=== PATIENT | female | born 1970 | race Two or more races ===

== ENCOUNTER 2017-04-20 09:33 | Outpatient (CLI) | payer BC ==
[~2017-04-20] VITALS: Ht 170.2 cm; Wt 54.4 kg
[2017-04-20 09:55] VITALS: BP 134/86
[2017-04-20] MEDS ORDERED: OMEPRAZOLE40 M1 ORAL (09:56)
--- NOTE | 2017-04-21 16:22 | GI Initial Consult Note ---
History of Present Illness General Date patient seen: Apr 20, 2017 Time patient seen: 11:00 Referring physician: PRABHA SOLANO Reason for Consultation: ABDOMINAL PAIN Present Illness HPI 47 year old female patient referred by Dr. Solano for evaluation of abdominal pain and elevated LFTs. The patient presents today with c/o generalized abdominal pain, bloating, nausea with occasional vomiting and GERD. Abdominal U/S reviewed shows fatty liver and cholelithiasis. Labs reviewed shows vitamin D deficiency. Denies any unintentional weight loss or changes in dietary habits. No signs of abuse or neglect. Patient is not fall risk. Home Meds Reported Medications Omeprazole (OMEPRAZOLE) 40 Mg Capsule., 40 MG ORAL DAILY, CAP 04/20/17 Med list reviewed/reconciled: Yes Allergies: Coded Allergies: No Known Allergies (Unverified , 04/20/17) Patient History History Provided By: Patient, Medical Record PMH Narrative GERD HLD Past Surgical History: x 2 Family History Narrative Father >> Lung CA Social History Narrative ETOH social use approximately 2 a month. Tobacco use x 8 years, but has quit for 18 years occasional caffeine use Review of Systems All Other Systems: negative except mentioned in HPI Physical Exam Vital Signs Date Time Temp Pulse Resp B/P (MAP) Pulse Ox O2 Delivery O2 Flow Rate FiO2 04/20/17 09:55 98.7 73 134/86 99 98.7 Sp02 EP Interpretation: reviewed, normal General Appearance: well appearing, no apparent distress, alert Head: normocephalic EENT: PERRL/EOMI, normal ENT inspection Neck: supple Respiratory: normal breath sounds, no respiratory distress Cardiovascular: normal rate Gastrointestinal: normal inspection, non tender, soft, normal bowel sounds, non -distended Rectal: deferred Genitourinary: no CVA tenderness Musculoskeletal: normal inspection, back normal Neurologic: normal inspection, alert, oriented x3, responsive Psychiatric: normal inspection, judgement/insight normal, memory normal Skin: normal inspection, normal color, no rash, warm/dry, palpation normal, well hydrated Lymphatic: normal inspection, no adenopathy GI: Plan Problems: (1) Cholelithiasis (2) GERD (gastroesophageal reflux disease) (3) Nausea & vomiting (4) LFT elevation Plan abdominal U/S reviewed labs reviewed patient requires cholecystectomy will refer patient to general surgery Seen with Dr. Vosoghi. Thank you for this patient referral. Priti Eastman N.P. Apr 21, 2017 16:22
== END 2017-04-20 10:05 | disposition home or self-care (01) ==
LOC: PAN 09:33
DX: K80.20 Calculus of gallbladder without cholecystitis without obstruction (principal); K21.9 Gastro-esophageal reflux disease without esophagitis; R11.2 Nausea with vomiting, unspecified; R79.89 Other specified abnormal findings of blood chemistry; E78.5 Hyperlipidemia, unspecified; K76.0 Fatty (change of) liver, not elsewhere classified

== ENCOUNTER 2017-06-16 14:02 | Inpatient (IN) | payer BC ==
[~2017-06-16] VITALS: Ht 160 cm; Wt 77.1 kg
[~2017-06-16 14:02] MED LIST: OMEPRAZOLE40 M1 ORAL
[2017-06-16] MEDS ORDERED: Sodium Chloride 500ML 500 ML IV ONE (14:14)
[2017-06-16] MEDS ORDERED: Ketorolac 30mg Inj IV ONE (14:15)
[2017-06-16] MEDS ORDERED: Dicyclomine HCl 10mg/5ml oral soln ORAL ONE (14:15)
--- NOTE | 2017-06-16 14:18 | Emergency Room Report ---
History of Present Illness General Chief Complaint: Abdominal Pain Source: Patient Present Illness HPI Patient is a 47-year-old female who presented after increased the sharp epigastric pain. Patient reports having severe pain which did not radiate. She puts having associated nausea and vomiting. She denies any hematemesis. She denies black or bloody stools. Patient prior history of gallbladder disease and was scheduled for cholecystectomy in July. The patient had onset of pain after eating taquitos Allergies: Coded Allergies: No Known Allergies (Unverified , 04/20/17) Patient History Past Medical History: see triage record Reviewed Nursing Documentation: PMH: Agreed; PSxH: Agreed Nursing Documentation-PMH Hx Cardiac Problems: Yes Hx Cancer: No Hx Gastrointestinal Problems: Yes - GALLSTONE Hx Neurological Problems: No Review of Systems All Other Systems: negative except mentioned in HPI Physical Exam Vital Signs Date Time Temp Pulse Resp B/P (MAP) Pulse Ox O2 Delivery O2 Flow Rate FiO2 06/16/17 14:05 97.8 83 20 137/85 99 Room Air 97.9 Sp02 EP Interpretation: reviewed, normal General Appearance: normal inspection, well appearing, no apparent distress, alert, GCS 15 Head: atraumatic ENT: normal ENT inspection, hearing grossly normal, normal voice Neck: normal inspection, full range of motion, supple, no bony tend Respiratory: normal inspection, lungs clear, normal breath sounds, no respiratory distress, no retraction, no wheezing Cardiovascular #1: regular rate, rhythm, no edema Gastrointestinal: normal inspection, normal bowel sounds, non tender, soft, no guarding, no hernia, tenderness - right upper quadrant Genitourinary: no CVA tenderness Musculoskeletal: normal inspection, back normal, normal range of motion Neurologic: normal inspection, alert, oriented x3, responsive, 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 Differential diagnoses included ischemic bowel, appendicitis, perforated viscus, abdominal aortic aneurysm, inferior myocardial infarction, viral gastroenteritis Because of complexity of patient's case laboratory testing and imaging studies were ordered.The abdominal ultrasound read by radiology showed dilated common bile duct . Common bile duct was greater than 7 mmconsistent with possible choledocholithiasis. The patient was given a GI cocktail without any improvement. Patient also given IV Toradol.The patient was discussed with Dr. Shady Metcalf for inpatient management due to capitated physician. Dr. Gonzales was contacted for GI consult Labs Test 06/16/17 14:20 06/16/17 14:55 White Blood Count 7.6 K/UL (4.8-10.8) Red Blood Count 4.90 M/UL (4.20-5.40) Hemoglobin 14.7 G/DL (12.0-16.0) Hematocrit 42.4 % (37.0-47.0) Mean Corpuscular Volume 87 FL (80-99) Mean Corpuscular Hemoglobin 30.1 PG (27.0-31.0) Mean Corpuscular Hemoglobin Concent 34.8 G/DL (32.0-36.0) Red Cell Distribution Width 11.4 % (11.6-14.8) Platelet Count 225 K/UL (150-450) Mean Platelet Volume 6.5 FL (6.5-10.1) Neutrophils (%) (Auto) 59.9 % (45.0-75.0) Lymphocytes (%) (Auto) 28.5 % (20.0-45.0) Monocytes (%) (Auto) 7.3 % (1.0-10.0) Eosinophils (%) (Auto) 3.4 % (0.0-3.0) Basophils (%) (Auto) 0.9 % (0.0-2.0) Prothrombin Time 10.0 SEC (9.30-11.50) Prothromb Time International Ratio 1.0 (0.9-1.1) Activated Partial Thromboplast Time 29 SEC (23-33) Sodium Level 138 MMOL/L (136-145) Potassium Level 3.8 MMOL/L (3.5-5.1) Chloride Level 101 MMOL/L (98-107) Carbon Dioxide Level 28 MMOL/L (21-32) Anion Gap 9 mmol/L (5-15) Blood Urea Nitrogen 14 mg/dL (7-18) Creatinine 0.8 MG/DL (0.55-1.30) Estimat Glomerular Filtration Rate > 60 mL/min (>60) Glucose Level 111 MG/DL (74-106) Calcium Level 9.2 MG/DL (8.5-10.1) Total Bilirubin 0.8 MG/DL (0.2-1.0) Aspartate Amino Transf (AST/SGOT) 38 U/L (15-37) Alanine Aminotransferase (ALT/SGPT) 33 U/L (12-78) Alkaline Phosphatase 68 U/L (46-116) Troponin I 0.000 ng/mL (0.000-0.056) Total Protein 8.2 G/DL (6.4-8.2) Albumin 4.0 G/DL (3.4-5.0) Globulin 4.2 g/dL Albumin/Globulin Ratio 1.0 (1.0-2.7) Lipase 140 U/L (73-393) Urine Color Yellow Urine Appearance Clear Urine pH 7 (4.5-8.0) Urine Specific [place] 1.015 (1.005-1.035) Urine Protein 1+ (NEGATIVE) Urine Glucose (UA) Negative (NEGATIVE) Urine Ketones 1+ (NEGATIVE) Urine Occult Blood 2+ (NEGATIVE) Urine Nitrite Negative (NEGATIVE) Urine Bilirubin Negative (NEGATIVE) Urine Urobilinogen 1 MG/DL (0.0-1.0) Urine Leukocyte Esterase 2+ (NEGATIVE) Urine RBC 2-4 /HPF (0 - 2) Urine WBC 0-2 /HPF (0 - 2) Urine Squamous Epithelial Cells Few /LPF (NONE/OCC) Urine Bacteria Few /HPF (NONE) Last Vital Signs Date Time Temp Pulse Resp B/P (MAP) Pulse Ox O2 Delivery O2 Flow Rate FiO2 06/16/17 14:05 97.8 83 20 137/85 99 Room Air 97.9 Status: unchanged Disposition: ADMITTED INPATIENT Condition: Serious Scripts Dicyclomine Hcl* (DICYCLOMINE HCL*) 10 Mg Capsule 10 MG PO QID, #30 CAP Prov: Dylon Saldana 06/16/17 Dylon Saldana June 16, 2017 14:18
[2017-06-16 14:37] VITALS: BP 137/85
[2017-06-16 14:37] LABS: BASOPHILS % (AUTO) 0.9 % (0.0-2.0); EOSINOPHILS % (AUTO) 3.4 % (0.0-3.0); HEMATOCRIT 42.4 % (37.0-47.0); HEMOGLOBIN 14.7 G/DL (12.0-16.0); LYMPHOCYTES % (AUTO) 28.5 % (20.0-45.0); MEAN CORPUSCULAR VOLUME 87 FL (80-99); MONOCYTES % (AUTO) 7.3 % (1.0-10.0); NEUTROPHILS % (AUTO) 59.9 % (45.0-75.0); PLATELET COUNT 225 K/UL (150-450); RED CELL DISTRIBUTION WIDTH 11.4 % (11.6-14.8); WHITE BLOOD COUNT 7.6 K/UL (4.8-10.8)
[2017-06-16 14:49] LABS: ANION GAP 9 mmol/L (5-15); BLOOD UREA NITROGEN 14 mg/dL (7-18); CALCIUM 9.2 MG/DL (8.5-10.1); CARBON DIOXIDE 28 MMOL/L (21-32); CHLORIDE 101 MMOL/L (98-107); CREATININE 0.8 MG/DL (0.55-1.30); POTASSIUM 3.8 MMOL/L (3.5-5.1); SODIUM 138 MMOL/L (136-145)
[2017-06-16 14:53] LABS: ALANINE AMINOTRANSFERASE 33 U/L (12-78); ALKALINE PHOSPHATASE 68 U/L (46-116); ASPARTATE AMINO TRANSFERASE 38 U/L (15-37); BILIRUBIN,TOTAL 0.8 MG/DL (0.2-1.0)
[2017-06-16] MEDS ORDERED: DICYCLOMINE HCL10 MG PO (15:15)
[2017-06-16 15:32] LABS: APPEARANCE,URINE CLEAR; BILIRUBIN, URINE NEGATIVE (NEGATIVE); COLOR,URINE YELLOW; GLUCOSE, URINE (UA) NEGATIVE (NEGATIVE); KETONES,URINE 1+ (NEGATIVE); LEUKOCYTE ESTERASE ,URINE 2+ (NEGATIVE); NITRITE,URINE NEGATIVE (NEGATIVE); PH,URINE 7 (4.5-8.0); PROTEIN,URINE 1+ (NEGATIVE); UROBILINOGEN,URINE 1 MG/DL (0.0-1.0)
[2017-06-16 15:40] VITALS: BP 134/75
[2017-06-16] MEDS ORDERED: NKM (15:52)
[2017-06-16 17:53] VITALS: BP 135/74
[2017-06-16 18:44] VITALS: BP 141/77
[2017-06-16 19:56] VITALS: BP 140/76
[2017-06-16] MEDS: D5NS 1,000 ML IV SCH (20:38)
[2017-06-16] MEDS ORDERED: cefTRIAXone 1 GM in D5W 55 ML IVPB SCH (21:00)
[2017-06-17] VITALS: BP 126/73
[2017-06-17 04:00] VITALS: BP 133/75
[2017-06-17 08:00] VITALS: BP 125/77
--- NOTE | 2017-06-17 09:23 | Diagnostic Imaging Report ---
Indication:Abdominal pain Technique: Grayscale and duplex Doppler imaging of the abdomen performed. Comparison: None Findings: The liver, demonstrated part of the pancreas, aorta and IVC, spleen appear unremarkable. Gallstones are present. Positive sonographic Sandoval's is reported. Cholecystitis not excluded. There is no wall thickening or pericholecystic fluid. CBD is prominent measuring between 7 and 8 mm. Doppler evaluation of the main portal vein shows patency. There is no ascites. No hydronephrosis seen. However, there are some echogenic foci within the kidneys which may be 6 small nonobstructive stones. There is a probable left renal cyst measuring 2 cm. Impression: Gallstones. Positive sonographic Sandoval's per technologist. Cholecystitis not excluded. Correlate clinically. Slightly prominent CBD. This may be normal. Correlate clinically Suggestion of nonobstructive bilateral renal stones.
[2017-06-17 12:00] VITALS: BP 124/68
[2017-06-17] MEDS ORDERED: Isovue-300 100ml vial INJ PRN (12:30)
--- NOTE | 2017-06-17 12:35 | GI Initial Consult Note ---
History of Present Illness General Date patient seen: June 17, 2017 Time patient seen: 16:46 Reason for Hospitalization: Abdominal Pain Referring physician: NATHALIA LONGORIA Reason for Consultation: ABDOMINAL PAIN Present Illness HPI Patient is a 47-year-old female who presented after increased the sharp epigastric pain. Patient reports having severe pain which did not radiate. She puts having associated nausea and vomiting. She denies any hematemesis. She denies black or bloody stools. Patient prior history of gallbladder disease and was scheduled for cholecystectomy in July. The patient had onset of pain after eating taquitos GI consult for abdominal pain. Pt seen, awake A&Ox4 NAD c/o of abdominal pain. State has been ongoing for the past 10 months, has been more recurrent within the past month. Abdominal U/S reviewed shows cholelithiasis. Labs reviewed show slight AST elevation. No history of colonoscopy / endoscopy. Home Meds Active Scripts Dicyclomine Hcl* (DICYCLOMINE HCL*) 10 Mg Capsule, 10 MG PO QID, #30 CAP Prov:Dylon Saldana 06/16/17 Reported Medications Ondansetron Odt* (ZOFRAN ODT*) 8 Mg Tab.rapdis, 8 MG ORAL Q8HR PRN for Nausea & Vomiting, #30 TAB 06/17/17 Omeprazole (OMEPRAZOLE) 20 Mg Capsule.dr, 20 MG ORAL DAILY, #30 CAP 06/17/17 No Known Medications* (NKM - No Known Medications*) ., 0 ., 0 Refills 06/16/17 Discontinued Reported Medications Omeprazole (OMEPRAZOLE) 40 Mg Capsule.dr, 40 MG ORAL DAILY, CAP 04/20/17 Med list reviewed/reconciled: Yes Allergies: Coded Allergies: No Known Allergies (Unverified , 04/20/17) Patient History History Provided By: Patient, Medical Record PMH Narrative Past Medical History: see triage record Reviewed Nursing Documentation: PMH: Agreed; PSxH: Agreed Nursing Documentation-PMH Hx Cardiac Problems: Yes Hx Cancer: No Hx Gastrointestinal Problems: Yes - GALLSTONE Hx Neurological Problems: No Social History: Denies: smoking, alcohol use, drug use, other Review of Systems All Other Systems: negative except mentioned in HPI Physical Exam Vital Signs Date Time Temp Pulse Resp B/P (MAP) Pulse Ox O2 Delivery O2 Flow Rate FiO2 06/16/17 14:05 97.8 83 20 137/85 99 Room Air 97.9 Sp02 EP Interpretation: reviewed, normal Labs Laboratory Tests Test 06/16/17 14:20 06/16/17 14:55 White Blood Count 7.6 K/UL (4.8-10.8) Red Blood Count 4.90 M/UL (4.20-5.40) Hemoglobin 14.7 G/DL (12.0-16.0) Hematocrit 42.4 % (37.0-47.0) Mean Corpuscular Volume 87 FL (80-99) Mean Corpuscular Hemoglobin 30.1 PG (27.0-31.0) Mean Corpuscular Hemoglobin Concent 34.8 G/DL (32.0-36.0) Red Cell Distribution Width 11.4 % (11.6-14.8) L Platelet Count 225 K/UL (150-450) Mean Platelet Volume 6.5 FL (6.5-10.1) Neutrophils (%) (Auto) 59.9 % (45.0-75.0) Lymphocytes (%) (Auto) 28.5 % (20.0-45.0) Monocytes (%) (Auto) 7.3 % (1.0-10.0) Eosinophils (%) (Auto) 3.4 % (0.0-3.0) H Basophils (%) (Auto) 0.9 % (0.0-2.0) Prothrombin Time 10.0 SEC (9.30-11.50) Prothromb Time International Ratio 1.0 (0.9-1.1) Activated Partial Thromboplast Time 29 SEC (23-33) Sodium Level 138 MMOL/L (136-145) Potassium Level 3.8 MMOL/L (3.5-5.1) Chloride Level 101 MMOL/L (98-107) Carbon Dioxide Level 28 MMOL/L (21-32) Anion Gap 9 mmol/L (5-15) Blood Urea Nitrogen 14 mg/dL (7-18) Creatinine 0.8 MG/DL (0.55-1.30) Estimat Glomerular Filtration Rate > 60 mL/min (>60) Glucose Level 111 MG/DL (74-106) H Calcium Level 9.2 MG/DL (8.5-10.1) Total Bilirubin 0.8 MG/DL (0.2-1.0) Aspartate Amino Transf (AST/SGOT) 38 U/L (15-37) H Alanine Aminotransferase (ALT/SGPT) 33 U/L (12-78) Alkaline Phosphatase 68 U/L (46-116) Troponin I 0.000 ng/mL (0.000-0.056) Total Protein 8.2 G/DL (6.4-8.2) Albumin 4.0 G/DL (3.4-5.0) Globulin 4.2 g/dL Albumin/Globulin Ratio 1.0 (1.0-2.7) Lipase 140 U/L (73-393) Urine Color Yellow Urine Appearance Clear Urine pH 7 (4.5-8.0) Urine Specific [place] 1.015 (1.005-1.035) Urine Protein 1+ (NEGATIVE) H Urine Glucose (UA) Negative (NEGATIVE) Urine Ketones 1+ (NEGATIVE) H Urine Occult Blood 2+ (NEGATIVE) H Urine Nitrite Negative (NEGATIVE) Urine Bilirubin Negative (NEGATIVE) Urine Urobilinogen 1 MG/DL (0.0-1.0) H Urine Leukocyte Esterase 2+ (NEGATIVE) H Urine RBC 2-4 /HPF (0 - 2) H Urine WBC 0-2 /HPF (0 - 2) Urine Squamous Epithelial Cells Few /LPF (NONE/OCC) Urine Bacteria Few /HPF (NONE) General Appearance: well appearing, no apparent distress, alert Head: normocephalic EENT: PERRL/EOMI, normal ENT inspection Neck: supple Respiratory: normal breath sounds, no respiratory distress Cardiovascular: normal rate Gastrointestinal: normal inspection, non tender, soft, normal bowel sounds, non -distended Rectal: deferred Genitourinary: no CVA tenderness Musculoskeletal: normal inspection, back normal Neurologic: normal inspection, alert, oriented x3, responsive Psychiatric: normal inspection, judgement/insight normal, memory normal Skin: normal inspection, normal color, no rash, warm/dry, palpation normal, well hydrated Lymphatic: normal inspection, no adenopathy Current Medications Current Medications Medications (Trade) Dose Ordered Sig/Taz Route PRN Reason Start Time Stop Time Status Last Admin Dose Admin Ceftriaxone Sodium 1 gm/ Dextrose 55 ml @ 110 mls/hr Q24H IVPB 06/16/17 21:00 06/23/17 23:59 06/16/17 20:37 Dextrose/Sodium Chloride 1,000 ml @ 75 mls/hr [id number] IV 06/16/17 20:00 07/16/17 19:59 06/16/17 20:38 Hydromorphone HCl (Dilaudid) 0.5 mg Q4H PRN IVP Mild Pain (Pain Scale 1-3) 06/17/17 07:00 06/24/17 06:59 Hydromorphone HCl (Dilaudid) 1 mg Q4H PRN IVP Severe Pain (Pain Scale 7-10) 06/16/17 20:00 06/23/17 19:59 06/17/17 00:40 Iopamidol (Isovue-300 100ml) 100 ml NOW PRN INJ Radiology Procedure 06/17/17 12:30 06/19/17 23:59 Ondansetron HCl (Zofran) 4 mg Q4H PRN IVP Nausea & Vomiting 06/17/17 02:15 07/17/17 02:14 06/17/17 09:02 GI: Plan Problems: (1) Cholelithiasis (2) LFT elevation (3) Nausea & vomiting (4) GERD (gastroesophageal reflux disease) Plan abdominal US reviewed >> cholelithiasis, fu with surgical surgical intervention reviewed >> nonemergent, ok for outpatient symptomatic treatment pain mgmt ppi fu labs Discussed with Dr. Gonzales. Thank you for this patient referral, we will follow. Priti Eastman N.P. June 17, 2017 12:35
[2017-06-17] MEDS ORDERED: Norco 5mg/325mg tab ORAL PRN (12:39)
[2017-06-17] MEDS: D5NS 1,000 ML IV SCH (12:47)
--- NOTE | 2017-06-17 13:52 | Diagnostic Imaging Report ---
Indication: Abdominal pain Technique: Continuous helical transaxial imaging of the abdomen and pelvis was obtained from the lung bases to the pubic symphysis during intravenous contrast administration. Coronal 2-D reformats were also obtained. Study obtained in a Siemens sensation [address] Automatic Exposure Control was utilized. Total Dose length Product (DLP): 926.[address] Dose Index Volume (CTDIvol): 16.58 mGy Comparison: None Findings: The lung bases are essentially clear. Liver is unremarkable in appearance. Gallbladder is mildly distended. Spleen is unremarkable. Pancreas is unremarkable. There is no free fluid. There is a left renal cyst centrally measuring approximately 2 cm. The appendix is normal. No evidence of bowel obstruction. There is an involuting cyst with enhancing slightly irregular borders are within the left ovary. Uterus is noted and unremarkable. IMPRESSION: Small involuting left ovarian cyst noted. Normal appendix. Left renal cyst 2 cm in size. The CT scanner at [facility] is accredited by the [employer] and the scans are performed using dose optimization techniques as appropriate to a performed exam including Automatic Exposure control.
--- NOTE | 2017-06-17 15:08 | Consultation ---
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 pain cramping epigastric pain that radiates to right and left upper quadrants. nausea, non bloody emesis. had ultrasound which demonstrated cholelithiasis and +mcconnell's at the time. since pain has resolved. some nausea but controlled with zofran. emesis resolved. states that she has had similar events in the past. has been diagnosed with symptomatic cholelithiasis and is scheduled to have elective cholecystectomy in july 26, 2017. Initially had episodes similar infrequently but has been having them more frequently as of a few months ago. +flatus. +BM' s. Allergies: Coded Allergies: No Known Allergies (Unverified , 04/20/17) Medication History Scheduled Dicyclomine Hcl* (Dicyclomine Hcl*), 10 MG PO QID No Known Medications* (NKM - No Known Medications*), 0 ., (Reported) Discontinued Medications Omeprazole (Omeprazole), 40 MG ORAL DAILY, (Reported) Discontinued Reason: Pt stopped taking med Patient History History Provided By: Patient, Medical Record, PMD Healthcare decision maker Resuscitation status Full Code Advanced Directive on File No Past Medical/Surgical History Past Medical/Surgical History: (1) GERD (gastroesophageal reflux disease) (2) Nausea & vomiting (3) LFT elevation (4) Choledocholithiasis (5) Cholelithiasis Review of Systems Constitutional: Denies: no symptoms, see HPI, chills, sweats, fever, malaise, weakness, other Eye: Denies: no symptoms, see HPI, eye pain, blurred vision, tearing, double vision, nose pain, nose congestion, acuity changes, discharge, other ENT: Denies: no symptoms, see HPI, ear pain, ear discharge, nose pain, nose congestion, throat pain, throat swelling, mouth pain, hearing loss, nasal discharge, other Respiratory: Denies: no symptoms, see HPI, cough, orthopnea, shortness of breath, stridor, wheezing, CORRIGAN, sputum, other Cardiovascular: Denies: no symptoms, see HPI, chest pain, edema, palpitations, syncope, PND, other Gastrointestinal: Denies: no symptoms, see HPI, abdominal pain, constipation, diarrhea, nausea, vomiting, melena, hematemesis, other Genitourinary: Denies: no symptoms, see HPI, discharge, dysuria, frequency, hematuria, pain, retention, incontinence, urgency, vag bleed/dc, other Musculoskeletal: Denies: no symptoms, see HPI, back pain, gout, joint pain, joint swelling, muscle pain, muscle stiffness, other Skin: Denies: no symptoms, see HPI, rash, change in color, change in hair/nails , dryness, lesions, other Psychiatric: Denies: no symptoms, see HPI, prior hx, anxiety, depressed feelings, emotional problems, SI, HI, hallucinations, other Neurological: Denies: no symptoms, see HPI, headache, numbness, paresthesia, seizure, tingling, tremors, focal weakness, syncope, dizziness, other Endocrine: Denies: no symptoms, see HPI, excessive sweating, flushing, intolerance to temperature, increased thirst, increased urine, unexplained weight loss, other Hematologic/Lymphatic: Denies: no symptoms, see HPI, anemia, blood clots, easy bleeding, easy bruising, swollen glands, diathesis, other All Other Systems: negative except mentioned in HPI Physical Exam General Appearance: no apparent distress, alert Lines, tubes and drains: peripheral HEENT: normocephalic, mucous membranes moist, PERRL Neck: normal alignment Respiratory/Chest: lungs clear, normal breath sounds, no respiratory distress, no accessory muscle use Cardiovascular/Chest: normal peripheral pulses, normal rate, regular rhythm Abdomen: normal bowel sounds, soft, no organomegaly, no mass, tender - can identify tenderness in umbilical region. no murphys on my exam Extremities: normal range of motion, non-tender, normal inspection Skin Exam: normal pigmentation, warm/dry Neurologic: alert, oriented x 3 Last 24 Hour Vital Signs Date Time Temp Pulse Resp B/P (MAP) Pulse Ox O2 Delivery O2 Flow Rate FiO2 06/17/17 12:00 97.8 67 16 124/68 99 97.8 06/17/17 08:00 97.6 67 18 125/77 98 97.6 06/17/17 04:00 98.7 73 18 133/75 95 Room Air 98.7 06/17/17 01:10 98.3 06/17/17 00:40 98.3 06/17/17 00:00 98.3 74 18 126/73 98 98.3 06/16/17 19:56 98.0 70 18 140/76 97 98.0 06/16/17 18:44 98.7 72 20 141/77 96 Room Air 98.7 06/16/17 18:15 97.8 78 18 135/74 99 Room Air 97.8 06/16/17 17:53 97.8 78 18 135/74 99 Room Air 97.8 06/16/17 15:40 79 18 134/75 99 Room Air 06/16/17 15:40 97.8 Intake and Output 06/16/17 06/17/17 19:00 07:00 Intake Total 60 ml 675 ml Balance 60 ml 675 ml Intake Oral 60 ml IV Total 675 ml # Voids 2 Height (Feet): 5 Height (Inches): 3.00 Weight (Pounds): 170 Medications Current Medications Medications (Trade) Dose Ordered Sig/Taz Route PRN Reason Start Time Stop Time Status Last Admin Dose Admin Acetaminophen/ Hydrocodone Bitart ([place] 5/325) 1 tab Q6H PRN ORAL For Mod Pain 06/17/17 12:39 06/24/17 12:38 Ceftriaxone Sodium 1 gm/ Dextrose 55 ml @ 110 mls/hr Q24H IVPB 06/16/17 21:00 06/23/17 23:59 06/16/17 20:37 Dextrose/Sodium Chloride 1,000 ml @ 75 mls/hr [id number] IV 06/16/17 20:00 07/16/17 19:59 06/17/17 12:47 Hydromorphone HCl (Dilaudid) 0.5 mg Q4H PRN IVP Mild Pain (Pain Scale 1-3) 06/17/17 07:00 06/24/17 06:59 Hydromorphone HCl (Dilaudid) 1 mg Q4H PRN IVP Severe Pain (Pain Scale 7-10) 06/16/17 20:00 06/23/17 19:59 06/17/17 00:40 Iopamidol (Isovue-300 100ml) 100 ml NOW PRN INJ Radiology Procedure 06/17/17 12:30 06/19/17 23:59 Ondansetron HCl (Zofran) 4 mg Q4H PRN IVP Nausea & Vomiting 06/17/17 02:15 07/17/17 02:14 06/17/17 09:02 Assessment/Plan Problem List: (1) Cholelithiasis Assessment & Plan: doing well. stable. improving. pain resolved. no n/v/f/ c. did have umbilical pain on exam that was more than anticipated. CT scan performed and identified reducible umbilical hernia. no other abnormalities noted. likely episode of biliary colic. resolved. stable -d/c home -follow up with planned elective cholecystectomy as scheduled by her surgeon -follow up with me as needed -okay to return to work -rx as written -return if worsening condition thank you for this consultation. ICD Codes: K80.20 - Calculus of gallbladder without cholecystitis without obstruction SNOMED: [id number] Qualifiers: Status: stable BenjyFelipe amador June 17, 2017 15:08
[2017-06-17] MEDS ORDERED: OMEPRAZOLE20 M2 ORAL (15:33)
[2017-06-17] MEDS ORDERED: ZOFRAN ODT8 MG ORAL (15:34)
[2017-06-17] MEDS ORDERED: Tubing IV Secondary IV ONE (15:56)
[2017-06-17] MEDS ORDERED: D5NS 1000ml IV ONE (15:56)
--- NOTE | 2017-06-17 19:45 | History and Physical Report ---
DATE OF ADMISSION: 06/16/2017 HISTORY OF PRESENT ILLNESS: This is a very pleasant 47-year-old female with a previous history of choledocholithiasis. She has a scheduled cholecystectomy at [facility] in the near future. The patient denies any previous history except for history of previous . She came to the hospital with abdominal pain. She also had nausea. She was admitted overnight due to findings of positive sonographic Sandoval sign on ultrasonography as well as pericholecystic fluid. The patient denies any headaches, hematemesis, melena, hematochezia, or weight loss. PAST MEDICAL HISTORY: Choledocholithiasis, cholelithiasis, and previous . ALLERGIES: None reported. HOME MEDICATIONS: None. PHYSICAL EXAMINATION: VITAL SIGNS: Blood pressure 130/70, heart rate . She is afebrile. GENERAL: Reveals a young female. HEENT: Unremarkable. CHEST: Clear breath sounds bilaterally. ABDOMEN: Soft. There is no edema. There is mild right discomfort. NEUROLOGIC: Nonfocal. LABORATORY AND DIAGNOSTIC DATA: Lab testing shows white count 7.6, hemoglobin 14, platelet count is normal. Chemistry is unremarkable. Glucose is 111. AST 38 and ALT 33. Troponins negative. Coags are negative. Urinalysis negative. Imaging studies, discussed above. There is evidence of CBD being 7.8 mm and there are renal stones as well as a left renal cyst. IMPRESSION: 1. Cholelithiasis. 2. Possible cholecystitis. DISCUSSION: We will consult Surgery. The patient may be a candidate for cholecystectomy. If not, we will consider discharge to home and outpatient followup. Shady Metcalf M.D. DR: REBEKA JOB#: [id number] CC:
--- NOTE | 2017-06-18 14:36 | Discharge Summary ---
Discharge Summary Discharge Summary Discharge Summary DATE OF ADMISSION: 06/16/2017 DATE OF DISCHARGE: 06/17/2017 CONSULTANTS: Dr. Felipe Gonzales BRIEF HOSPITAL COURSE: Patient is a 47-year-old female, with previous history of choledocholithiasis. She has a scheduled cholecystectomy in the near future. She came to the hospital complaining of abdominal pain with nausea. She denied headaches, hematemesis, melena, hematochezia or weight loss. She has medical history significant for cholelithiasis, cholelithiasis and previous . On evaluation at ED, blood work did not show any leukocytosis. Chemistry unremarkable. AST 38, AST 33. Urinalysis was negative. Troponin was negative. Abdominal ultrasound showed gallstones with positive sonographic Sandoval's. Slightly prominent CBD. Abdominal and pelvic CT showed gallbladder mildly distended. There is an involuting cyst on the left ovary. Appendix normal. She was given symptomatic treatment and pain management. She was given proton pump inhibitors. She was seen by GI and surgeon. No emergent surgical intervention needed. Patient was recommended to follow-up with planned elective cholecystectomy previously scheduled. Okay to return to work. Patient was discharged home. FINAL DIAGNOSES: Cholelithiasis Possible cholecystitis DISPOSITION: Patient was discharged home. DISCHARGE MEDICATIONS: Refer to Discharge Medication List. DISCHARGE INSTRUCTIONS: Follow up with PCP in a week. I have been assigned to dictate discharge summary on this account, and I was not involved in the patient's management. Ale Acosta NP June 18, 2017 14:36
== END 2017-06-17 15:57 | disposition home or self-care (01) | DRG 446 ==
LOC: EEVIPCON 14:02 → EMR 14:20 → EDBEDREQ 15:25 → 3E 16:34 → EDBEDREQ 17:38 → 3E 18:11
DX: K80.10 Calculus of gallbladder with chronic cholecystitis without obstruction (principal); N83.202 Unspecified ovarian cyst, left side; K21.9 Gastro-esophageal reflux disease without esophagitis
CPT/HCPCS: 36415; 74177; 76700; 80053; 81003; 83690; 84484; 85025; 85610; 85730; 86850; 86900; 86901; 99285; J2405

== ENCOUNTER 2017-11-27 09:06 | Emergency (ER) | payer BC ==
[~2017-11-27] VITALS: Ht 160 cm; Wt 68.9 kg
[~2017-11-27 09:06] MED LIST changes: +DICYCLOMINE HCL10 MG PO; +NKM; +OMEPRAZOLE20 M2 ORAL; +ZOFRAN ODT8 MG ORAL
[2017-11-27 09:10] VITALS: BP 158/86
[2017-11-27] MEDS ORDERED: Acetaminophen 500mg (ES) tab ORAL ONE (09:30)
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
--- NOTE | 2017-11-27 10:15 | Diagnostic Imaging Report ---
INDICATION: Pain TECHNIQUE: Multiple, contiguous 2.5 mm axial cuts of the brain are obtained from the posterior fossa to the cranial vault. Sagittal and coronal reformatted images provided. No IV contrast is administered. One or more of the following dose reduction techniques were used: automated exposure control, adjustment of the mA and/or kV according to patient size, use of iterative reconstruction technique. COMPARISON: None FINDINGS: No intracranial hemorrhage, abnormal intra- or extra-axial collections or parenchymal lesions are seen. The shape and configuration of the cortical sulci, basal cisterns and ventricles are within normal limits. The lozano-white differentiation is preserved. No evidence of mass effect, midline shift, or edema. The osseous structures are unremarkable. The visualized portions of the paranasal sinuses are clear. IMPRESSION: Normal non-contrast CT scan of the head. CTDI: 70.38 mGy DLP: 1326.6 mGycm
[2017-11-27] MEDS ORDERED: IBUPROFEN600 MG ORAL (10:25)
[2017-11-27] MEDS ORDERED: CYCLOBENZAPRINE10 MG ORAL (10:25)
--- NOTE | 2017-11-27 10:31 | Diagnostic Imaging Report ---
Cervical Spine, 5 views INDICATION: Pain COMPARISON: None FINDINGS: Multiple views of the cervical spine are obtained. Straightening of the normal cervical lordosis. Tiny anterior osteophytes. Focal calcification of the nuchal ligament. Vertebral body heights and disk spaces are preserved. Alignment is anatomic. The paraspinal soft tissues are within normal limits. IMPRESSION: No acute fracture or subluxation. Straightening of the normal cervical lordosis.
[2017-11-27 10:42] VITALS: BP 144/85
[2017-11-27 10:43] VITALS: BP 144/85
== END 2017-11-27 10:43 | disposition home or self-care (01) ==
LOC: EMR 09:26
DX: S06.0X9A Concussion with loss of consciousness of unspecified duration, initial encounter (principal); S13.9XXA Sprain of joints and ligaments of unspecified parts of neck, initial encounter; S30.1XXA Contusion of abdominal wall, initial encounter; R51 Headache; V43.52XA Car driver injured in collision with other type car in traffic accident, initial encounter; Y93.9 Activity, unspecified; Y92.9 Unspecified place or not applicable; Y99.9 Unspecified external cause status; Z90.49 Acquired absence of other specified parts of digestive tract
CPT/HCPCS: 70450; 72050; 81025; 99284